=== PATIENT | female | born 1945 | race Caucasian/White ===

== ENCOUNTER 2017-05-14 16:43 | Inpatient (IN) | payer OTHER ==
[~2017-05-14] VITALS: Ht 160 cm; Wt 75.3 kg
[2017-05-14 19:09] LABS: BASOPHIL % 0.2 % (0-2); PLATELET COUNT 258 x10^3mcL (130-400); RED CELL DISTRIBUTION WIDTH 13.9 % (11.5-14.5)
[2017-05-14 19:24] LABS: UA SPECIFIC GRAVITY >=1.030 (1.005-1.035); microscopic required? YES; urine erythrocyte 2+ (NEGATIVE)
[2017-05-14 19:29] LABS: CARBON DIOXIDE 30.5 mmol/L (21-32); CREATININE SERUM 1.2 mg/dL (0.6-1.0); POTASSIUM SERUM 4.1 mmol/L (3.5-5.1)
[2017-05-14 19:34] LABS: ALBUMIN 3.4 g/dL (3.4-5.0); BILIRUBIN TOTAL 0.37 mg/dL (0.20-1.00); TOTAL PROTEIN, SERUM 7.3 g/dL (6.4-8.2)
[2017-05-14] MEDS ORDERED: MIRTAZAPINE30 M2 PO (21:21)
[2017-05-14] MEDS ORDERED: BUSPIRONE HCL5 MG PO (21:21)
[2017-05-14] MEDS ORDERED: SIMVASTATIN20 M1 PO (21:21)
[2017-05-14 22:18] VITALS: BP 101/52
[2017-05-14 22:38] LABS: MAGNESIUM 2.3 mg/dL (1.8-2.4); PHOSPHOROUS 3.2 mg/dL (2.5-4.9)
[2017-05-14 22:39] LABS: CHOLESTEROL/HDL RATIO 2.6
[2017-05-14 22:43] LABS: T3 TOTAL 1.08 ng/mL
[2017-05-14 22:44] LABS: FREE T4 0.94 ng/dL (0.76-1.46); FREE THYROXINE INDEX 2.5 ug/dL (1.4-4.5); T4(THYROXINE) 7.6 ug/dL (4.7-13.3)
[2017-05-15 07:12] LABS: BASOPHIL % 0.4 % (0-2); PLATELET COUNT 190 x10^3mcL (130-400); RED CELL DISTRIBUTION WIDTH 13.6 % (11.5-14.5)
[2017-05-15 07:38] LABS: CALCIUM 7.8 mg/dL (8.5-10.1); CARBON DIOXIDE 28.3 mmol/L (21-32); POTASSIUM SERUM 3.7 mmol/L (3.5-5.1)
[2017-05-15 09:36] VITALS: BP 106/55
[2017-05-15 14:16] VITALS: BP 112/55
[2017-05-15 14:59] LABS: AMPHETAMINE QUAL UR NONE DETECTED (NEG <=1000)
[2017-05-15 18:26] VITALS: BP 118/52
[2017-05-15 21:14] VITALS: BP 138/68
[2017-05-16 06:01] VITALS: BP 130/63
[2017-05-16 06:56] LABS: BASOPHIL % 0.3 % (0-2); PLATELET COUNT 201 x10^3mcL (130-400); RED CELL DISTRIBUTION WIDTH 13.3 % (11.5-14.5)
[2017-05-16 08:09] LABS: CALCIUM 8.4 mg/dL (8.5-10.1); CARBON DIOXIDE 25.3 mmol/L (21-32); CHLORIDE SERUM 112 mmol/L (98-107); CREATININE SERUM 0.8 mg/dL (0.6-1.0); GFR1 > 60 mL/min; GLUCOSE SERUM 87 mg/dL (74-106); POTASSIUM SERUM 3.6 mmol/L (3.5-5.1); SODIUM SERUM 146 mmol/L (136-145)
[2017-05-16 08:23] VITALS: BP 109/63
[2017-05-16 08:43] VITALS: Ht 160 cm; Wt 75.3 kg
[2017-05-16] MEDS ORDERED: METP PO ×3 (09:37→13:37)
[2017-05-16] MEDS ORDERED: DICYCLOMIN10 MG/5 ML PO ×2 (09:37→13:35)
[2017-05-16] MEDS ORDERED: TYL325 PO (09:37)
[2017-05-16] MEDS ORDERED: MECLIZINE HCL12.5 MG PO ×2 (09:37→13:37)
[2017-05-16] MEDS ORDERED: CEPACOL SORE TH1 LO4 MM ×2 (09:37→13:35)
[2017-05-16] MEDS ORDERED: ZOF4 PO (09:37)
[2017-05-16] MEDS ORDERED: COUGH100 MG/5 M PO ×2 (09:37→13:35)
[2017-05-16 11:02] VITALS: BP 109/63
[2017-05-16 11:03] VITALS: BP 109/63
[2017-05-16] MEDS ORDERED: MIRTAZAPINE30 M2 PO (13:35)
[2017-05-16] MEDS ORDERED: SIMVASTATIN20 M1 PO (13:35)
[2017-05-16] MEDS ORDERED: BUSPIRONE HCL5 MG PO (13:35)
== END 2017-05-16 14:37 | disposition home or self-care (01) | DRG 391 ==
LOC: ED 16:43 → DU 21:08 → MU 05-16 11:01
PROVIDERS: Emergency Medicine; Family Medicine
DX: A08.4 Viral intestinal infection, unspecified (principal); N17.0 Acute kidney failure with tubular necrosis; N13.2 Hydronephrosis with renal and ureteral calculous obstruction; E86.0 Dehydration; J00 Acute nasopharyngitis [common cold]; R31.9 Hematuria, unspecified; D50.9 Iron deficiency anemia, unspecified; D18.09 Hemangioma of other sites; E78.5 Hyperlipidemia, unspecified; Z68.29 Body mass index [BMI] 29.0-29.9, adult
CPT/HCPCS: 83880; 84439; 87046; 87046-59; 87804; J1200; J1885; J2550; J7030; Q0092